=== PATIENT | female | born 1965 | race American Indian/Alaskan Native ===

== ENCOUNTER 2016-09-06 21:55 | Emergency (ER) | payer MEDICAID, SELFPAY ==
--- NOTE | 2016-09-07 00:01 | XRay Report ---
FINAL REPORT PROCEDURE: XR CHEST ROUTINE 2V TECHNIQUE: PA and lateral chest radiographs were obtained. CPT 14129 HISTORY: Shortness of breath COMPARISON: No prior studies are available for comparison. FINDINGS: Heart: Normal. Mediastinum/Vessels: Normal. Lungs/Pleural space: Normal. Bony thorax: No acute osseous abnormality. Other: IMPRESSION: Negative examination.
[2016-09-07] MEDS ORDERED: DUONEB 0.5 MG-3 MG/3 ML SOLN IH ONE (00:25)
[2016-09-07 00:26] LABS: Hematocrit 31.5 % (30.3-42.9); Hemoglobin 10.1 gm/dl (10.1-14.3); Mean Corpuscular HGB Conc 32 % (30-34); Mean Corpuscular Hemoglobin 28 pg (28-32); Mean Corpuscular Volume 86 fl (79-97); Platelet Count 185 K/mm3 (140-440); Red Blood Count 3.68 M/mm3 (3.65-5.03); Red Cell Distribution Width 15.2 % (13.2-15.2); White Blood Count 4.8 K/mm3 (4.5-11.0)
[2016-09-07] MEDS ORDERED: LIDOCAINE VISCOUS 2% PO ONE (00:26)
[2016-09-07] MEDS ORDERED: ALUM-MAG HYDROX-SIMETH 200-200-20MG/5ML PO ONE (00:26)
[2016-09-07 00:52] LABS: Anion Gap 16 mmol/L; Blood Urea Nitrogen 10 mg/dL (7-17); Calcium 8.8 mg/dL (8.4-10.2); Carbon Dioxide 26 mmol/L (22-30); Chloride 100.8 mmol/L (98-107); Glucose 97 mg/dL (65-100); Potassium 4.1 mmol/L (3.6-5.0); Sodium 139 mmol/L (137-145)
--- NOTE | 2016-09-07 01:24 | Emergency Department Report ---
HPI - General Chief Complaint: Upper Respiratory Infection Time Seen by Provider: 09/07/16 00:05 - HPI HPI: This is a 50-year-old Afro-[place]ypriot female presents to the emergency department from home with a complaint of a sore throat, pain with swallowing, and some tightness in the chest. She also complains of some congestion in the sinuses and nasal passages. All this is been relatively chronic as she has been seeing a clinical biochemical geneticist and ear nose throat physician for the symptoms recently. However she says it has been going on for almost the past year. More recently she was started on some Bactrim, ranitidine but she has not taken the medication as she says it is too hard to swallow such big pills. She denies any cough, fever, shortness of breath, nausea, vomiting. She denies any past medical history. No recent travel or sick contacts at home. She has a primary care doctor but has not seen them regarding the symptoms. ED Past Medical Hx - Past Medical History Previous Medical History?: No Hx Congestive Heart Failure: No Hx Diabetes: No Hx Asthma: No Hx COPD: No Hx HIV: No - Surgical History Past Surgical History?: Yes Hx Open Heart Surgery: No Hx Cholecystectomy: No Hx Appendectomy: No Hx Breast Surgery: No Additional Surgical History: c-sec x 2 right knee replacement deviated septum repair - Social History Smoking Status: Never Smoker Substance Use Type: None - Medications Home Medications: Home Medications Medication Instructions Recorded Confirmed Last Taken Type ALBUTEROL Inhaler [ProAir HFA 2 puff IH QID PRN #1 inhalation 09/07/16 Unknown Rx Inhaler] Mikaela-D 24 Hour Tablet 180 mg PO DAILY 09/07/16 09/07/16 Unknown History Amoxicillin/Potassium Clav 10 ml PO Q12HR #200 ml 09/07/16 Unknown Rx [Augmentin 400-57 MG / 5ml] Pseudoephedrine ER [Sudafed 12 Hr] 120 mg PO BID #20 tablet.er 09/07/16 Unknown Rx Singulair 10 mg PO DAILY 09/07/16 09/07/16 Unknown History ED Review of Systems ROS: Stated complaint: CHEST TIGHTNESS Other details as noted in HPI Comment: All other systems reviewed and negative Constitutional: denies: chills, fever Eyes: denies: eye pain, eye discharge, vision change ENT: throat pain, congestion Respiratory: denies: cough, shortness of breath, wheezing Cardiovascular: chest pain (tightness). denies: edema Gastrointestinal: denies: abdominal pain, nausea, diarrhea Genitourinary: denies: urgency, dysuria, discharge Musculoskeletal: denies: back pain, joint swelling, arthralgia Skin: denies: rash, lesions Neurological: denies: headache, weakness, paresthesias Physical Exam - Physical Exam Vital Signs: Vital Signs 09/06/16 09/07/16 09/07/16 22:27 00:43 00:51 Temperature 98.1 F Pulse Rate 91 H Pulse Rate [ 83 86 Anterior Bilateral Throughout] Respiratory 18 Rate Respiratory 16 16 Rate [Anterior Bilateral Throughout] Blood Pressure 153/95 O2 Sat by Pulse 100 Oximetry Physical Exam: GENERAL: The patient is well-developed well-nourished. HEENT: Normocephalic. Atraumatic. Extraocular motions are intact. Patient has moist mucous membranes. Pupils equal reactive to light bilaterally. Oropharynx does not show any tonsillar hypertrophy, erythema or exudates. There is some cobblestoning appearance to the posterior pharynx concerning for postnasal drip. No drooling or trismus. NECK: Supple. Trachea is midline. There is no palpable lymphadenopathy but the patient has some tenderness to palpation to the submandibular region of the neck. CHEST/LUNGS: Clear to auscultation. There is no respiratory distress noted. HEART/CARDIOVASCULAR: Regular. There is no tachycardia. There is no gallop rub or murmur. ABDOMEN: Abdomen is soft, nontender. Patient has normal bowel sounds. There is no abdominal distention. SKIN: Skin is warm and dry. NEURO: The patient is awake, alert, and oriented. The patient is cooperative. The patient has no focal neurologic deficits. The patient has normal speech. MUSCULOSKELETAL: There is no tenderness or deformity. There is no limitation range of motion. There is no evidence of acute injury. ED Course Vital Signs 09/06/16 09/07/16 09/07/16 22:27 00:43 00:51 Temperature 98.1 F Pulse Rate 91 H Pulse Rate [ 83 86 Anterior Bilateral Throughout] Respiratory 18 Rate Respiratory 16 16 Rate [Anterior Bilateral Throughout] Blood Pressure 153/95 O2 Sat by Pulse 100 Oximetry ED Medical Decision Making - Lab Data Result diagrams: 09/06/16 23:55 09/06/16 23:55 - EKG Data -: EKG Interpreted by Me EKG shows normal: sinus rhythm, axis, intervals, QRS complexes, ST-T waves Rate: normal - EKG Data When compared to previous EKG there are: no significant change (06/30/10) Interpretation: normal EKG, unchanged when compared t (06/30/10) - Radiology Data Radiology results: report reviewed, image reviewed interpreted by me: Chest x-ray did not show any acute process. Heart is normal shape and size. No effusions. No pneumothorax. No signs of pneumonia seen. CT of the neck with IV contrast shows some mild sinusitis otherwise it is a normal examination. - Medical Decision Making This is a 50-year-old female who presents to the emergency department with complaint of chronic sinus and nasal congestion, as well as some more recent throat pain that began after she was treated by a ENT physician allegedly. While she complains of pain with swallowing and inability to swallow large pills , there is no drooling, trismus and the patient was seen having no problem with her own secretions and even some water and a GI cocktail here. Her labs did not show any signs of leukocytosis, electrolyte abnormalities, renal insufficiency or glucose abnormalities. She was negative for strep pharyngitis. Chest x-ray did not show any acute process. Due to the level of the patient's throat discomfort, a CT of the neck with IV contrast was done that showed some mild sinusitis but otherwise no acute abnormalities of the neck. Her oropharynx appears consistent with some postnasal drip. Vital signs stable throughout her ED course including being afebrile. From these reasons the patient appears safe for discharge home. She was switched to a different antibiotics and was given a liquid form. She will remain with the H2 berenice and she was given a prescription for albuterol inhaler and Sudafed for decongestion. She was given multiple referrals for a different ENT physician. She will follow-up with her primary care, ENT, and will return to the ER with any worsening of her symptoms or any acute distress. - Differential Diagnosis strep pharyngitis, lymphadenopathy, postnasal drip, sinusitis Critical Care Time: No Critical care attestation.: If time is entered above; I have spent that time in minutes in the direct care of this critically ill patient, excluding procedure time. ED Disposition Clinical Impression: Throat pain Sinusitis Qualifiers: Sinusitis location: unspecified location Chronicity: unspecified Qualified Code (s): J32.9 - Chronic sinusitis, unspecified Disposition: DISCHARGED TO HOME OR SELFCARE Is pt being admited?: No Condition: Stable Instructions: Pharyngitis (ED), Sinusitis (ED) Additional Instructions: Please follow-up with your primary care doctor in the next few days if possible. I have given you a referral for a few different ear nose throat physicians. Return to the emergency department with any worsening of your symptoms or any acute distress. Prescriptions: ALBUTEROL Inhaler [ProAir HFA Inhaler] 2 puff IH QID PRN #1 inhalation PRN Reason: Shortness Of Breath Amoxicillin/Potassium Clav [Augmentin 400-57 MG / 5ml] 10 ml PO Q12HR #200 ml Pseudoephedrine ER [Sudafed 12 Hr] 120 mg PO BID #20 tablet.er Referrals: PRIMARY CARE, [Primary Care Provider] - 3-5 Days KOFFI HUMPHREY MD [Staff Physician] - 3-5 Days ERICK LINARES MD [Staff Physician] - 3-5 Days Time of Disposition: 03:29
[2016-09-07 01:41] VITALS: BP 133/92
[2016-09-07] MEDS ORDERED: NACL ONE (02:07)
--- NOTE | 2016-09-07 03:08 | Cat Scan Report ---
FINAL REPORT PROCEDURE: CT NECK W CON TECHNIQUE: Computerized axial tomography of the soft tissue neck was performed following the IV injection of iodinated nonionic contrast. HISTORY: Throat / Neck pain COMPARISON: No prior studies are available for comparison. FINDINGS: Skull and scalp: Normal. Paranasal sinuses: There is mild opacification of the ethmoid sinuses. Mucous retention cyst or polyp identified in left maxillary sinus.. Nasopharynx: Normal . Oral cavity: Normal . Epiglottis/vallecula: Normal . Larynx/pyriform sinuses: Normal . Thyroid gland: Normal . Lymph nodes: None enlarged . Salivary glands: Normal . Upper thorax: Normal . IMPRESSION: Mild sinusitis. The remainder of the study is normal.
[2016-09-07 03:52] LABS: Blastocytes % (Manual) 0 %
[2016-09-07 03:53] LABS: Anisocytosis 1+; Diff Status Complete
== END 2016-09-07 03:49 | disposition home or self-care (01) ==
LOC: ED 21:55
DX: J32.9 Chronic sinusitis, unspecified (principal); R07.0 Pain in throat
CPT/HCPCS: 36415; 70491; 71020; 80048; 84484; 85007; 85025; 87116; 87430; 93005; 93010; 94640; 96374; 99285; J2930; Q9967

== ENCOUNTER 2020-09-04 08:29 | Emergency (ER) | payer MEDICAID | END 2020-09-04 08:50 | disposition left against medical advice (07) | LOC: ED 08:29 | DX: I10 Essential (primary) hypertension (principal); Z53.21 Procedure and treatment not carried out due to patient leaving prior to being seen by health care provider ==